=== PATIENT | male | born 1995 | race Caucasian/White ===

== ENCOUNTER 2017-12-08 08:04 | Outpatient (CLI) | payer OTHER ==
--- NOTE | 2017-12-08 10:32 | MRI ---
MRI BRAIN WITHOUT AND WITH CONTRAST: Comparison: None. History: Patient had a seizure one week ago. Technique: Multiplanar, multisequence MRI images were obtained of the brain without and with IV contr ast. FINDINGS: There are a few scattered foci of high FLAIR signal in the subcortical and periventricular white blanca er. These are nonspecific. Thin cuts through the temporal lobes/hippocampi show a symmetric appearanc e of the hippocampi without evidence of mesiotemporal sclerosis. No abnormal enhancement is seen on t his examination. There is no evidence of hydrocephalus, intracranial hemorrhage, or extraaxial fluid collection. The e xpected flow voids are present. The corpus callosum, pituitary, and craniocervical junction are unrem arkable. A small amount of fluid is seen in some of the right posterior ethmoid air cells. The other paranasal sinuses and mastoid air cells are well aerated. IMPRESSION: Nonspecific small scattered foci of high T2/FLAIR signal in the subcortical and periventricular white matter. These are nonspecific and could be secondary vasculitities such as migraine headaches. These can also be seen with demyelinating conditions. This patient is likely too young to have early small vessel ischemic disease. POS: [facility]
== END 2017-12-08 08:05 | disposition home or self-care (01) ==
LOC: SCSMRI 08:04
PROVIDERS: ATTEND Psychiatry & Neurology Neurology
DX: G40.209 Localization-related (focal) (partial) symptomatic epilepsy and epileptic syndromes with complex partial seizures, not intractable, without status epilepticus (principal); R93.0 Abnormal findings on diagnostic imaging of skull and head, not elsewhere classified
CPT/HCPCS: 70553